=== PATIENT | male | born 1960 | race Two or more races ===

== ENCOUNTER 2018-08-19 04:30 | Inpatient (IN) | payer OTHER ==
[2018-08-19] MEDS ORDERED: morphine 4 MG/ML VIAL IV (05:10)
[2018-08-19] MEDS: SOD CHLORIDE 0.9% 1,000 ML IV ×2 (05:31→08:13)
[2018-08-19] MEDS: HYDROmorphONE 0.5 MG/0.5 ML SYG IV (05:32)
[2018-08-19] MEDS: ONDANSETRON 4 MG INJ IV (05:32)
[2018-08-19] MEDS: FAMOTIDINE 20 MG INJ IV (05:32)
[2018-08-19 05:43] LABS: ADD MAN DIFF? NO
[2018-08-19] MEDS: LIDOCAINE/MYLANTA 40 ML BTL PO (05:55)
[2018-08-19 05:57] LABS: BASOPHIL # 0.1 10^3/ul (0.0-0.1); BASOPHILS % 0.9 % (0.0-2.0); EOSINOPHILS # 0.2 10^3/ul (0.0-0.5); HEMATOCRIT 36.1 % (42.0-52.0); HEMOGLOBIN 12.6 g/dl (14.0-18.0); LYMPHOCYTES # 2.3 10^3/ul (0.8-2.9); LYMPHOCYTES % 40.7 % (15.0-51.0); MEAN CORPUSCULAR HEMOGLOBIN 30.7 pg (29.0-33.0); MEAN CORPUSCULAR HGB CONC 34.9 g/dl (32.0-37.0); MEAN PLATELET VOLUME 9.9 fl (7.4-10.4); MONOCYTE # 0.6 10^3/ul (0.3-0.9); MONOCYTES % 9.9 % (0.0-11.0); NEUTROPHIL # 2.5 10^3/ul (1.6-7.5); NEUTROPHILS % 45.1 % (39.0-77.0); PLATELET COUNT 223 10^3/UL (140-415); RED CELL DISTRIBUTION WIDTH 15.7 % (11.5-14.5)
[2018-08-19 05:57] LABS: WHITE BLOOD COUNT 5.6 10^3/ul (4.8-10.8)
[2018-08-19 06:51] LABS: ALANINE AMINOTRANSFERASE 48 IU/L (13-69); ALBUMIN 3.7 g/dl (3.3-4.9); ALBUMIN/GLOBULIN RATIO 1.02; ALKALINE PHOSPHATASE 121 IU/L (42-121); AMYLASE 163 U/L (11-123); ANION GAP 24 (8-16); ASPARTATE AMINO TRANSFERASE 83 IU/L (15-46); BILIRUBIN,INDIRECT 0.3 mg/dl (0-1.1); BILIRUBIN,TOTAL 0.3 mg/dl (0.2-1.3); BLOOD UREA NITROGEN 8 mg/dl (7-20); CARBON DIOXIDE 21 mmol/L (21-31); CHLORIDE 102 mmol/L (97-110); CREATININE 1.01 mg/dl (0.61-1.24); GLUCOSE 145 mg/dl (70-220); LIPASE 37 U/L (23-300); POTASSIUM 3.9 mmol/L (3.5-5.1); SODIUM 143 mmol/L (135-144); TOTAL PROTEIN 7.3 g/dl (6.1-8.1)
[2018-08-19] MEDS: LORAZEPAM 1 MG TAB PO (07:11)
[2018-08-19] MEDS: KETOROLAC 15 MG INJ IV ×2 (09:04→17:27)
[2018-08-19 10:16] LABS: ADD UMIC NO; UR ASCORBIC ACID NEGATIVE (NEGATIVE); UR BILIRUBIN (Dip) NEGATIVE (NEGATIVE); UR BLOOD (Dip) NEGATIVE (NEGATIVE); UR CLARITY CLEAR (CLEAR); UR COLOR YELLOW (YELLOW); UR GLUCOSE (Dip) NEGATIVE (NEGATIVE); UR KETONES (Dip) TRACE mg/dL (NEGATIVE); UR LEUKOCYTE ESTERASE (Dip) NEGATIVE Leu/ul (NEGATIVE); UR NITRITE (Dip) NEGATIVE (NEGATIVE); UR SPECIFIC GRAVITY (Dip) 1.012 (1.003-1.030); UR TOTAL PROTEIN (Dip) NEGATIVE (NEGATIVE); UR UROBILINOGEN (Dip) NEGATIVE (NEGATIVE)
[2018-08-19] MEDS: LORAZEPAM 2 MG INJ IV (11:49)
[2018-08-19] MEDS: THIAMINE 100 MG TAB PO (15:14)
[2018-08-19] MEDS: MULTIVITAMINS THERAPEUTIC TAB PO (15:14)
[2018-08-19] MEDS: FOLIC ACID 1 MG TAB PO (15:14)
[2018-08-19] MEDS: DEXTROSE 5%-0.45% NACL 1,000 ML IV ×2 (15:15→22:46)
[2018-08-19] MEDS: morphine 4 MG/ML VIAL IV ×2 (15:25→19:59)
[2018-08-19] MEDS: HYDROCODONE/APAP (5/325) TAB PO (17:27)
[2018-08-19] MEDS: CHLORDIAZEPOXIDE 25 MG CAP PO (20:09)
[2018-08-20] MEDS: KETOROLAC 15 MG INJ IV ×3 (00:13→12:09)
[2018-08-20] MEDS: morphine 4 MG/ML VIAL IV ×4 (01:06→14:19)
[2018-08-20] MEDS: HYDROCODONE/APAP (5/325) TAB PO ×2 (02:58→09:03)
[2018-08-20] MEDS: ZOLPIDEM 5 MG TAB PO (02:59)
[2018-08-20] MEDS: PANTOPRAZOLE (EC) 40 MG TAB PO (06:08)
[2018-08-20] MEDS: DEXTROSE 5%-0.45% NACL 1,000 ML IV ×3 (08:42→16:04)
[2018-08-20] MEDS: MULTIVITAMINS THERAPEUTIC TAB PO (09:02)
[2018-08-20] MEDS: THIAMINE 100 MG TAB PO (09:02)
[2018-08-20] MEDS: FOLIC ACID 1 MG TAB PO (09:02)
[2018-08-20] MEDS: CHLORDIAZEPOXIDE 25 MG CAP PO ×4 (09:02→21:00)
[2018-08-20] MEDS: HYDROmorphONE 2 MG/ML SYG IV (16:04)
[2018-08-20] MEDS: CREON (24K-76K-120K) 1 CAP PO (17:23)
[2018-08-20] MEDS ORDERED: HYDROmorphONE 1 MG/ML SYG IV (17:30)
[2018-08-20] MEDS ORDERED: CREON (24K-76K-120K) 1 CAP PO (18:00)
[2018-08-20] MEDS ORDERED: HYDROmorphONE 2 MG/ML SYG IV (19:30)
[2018-08-20 20:33] LABS: ADD MAN DIFF? NO
[2018-08-20 20:36] LABS: WHITE BLOOD COUNT 3.7 10^3/ul (4.8-10.8)
[2018-08-20 20:36] LABS: BASOPHILS % 0.8 % (0.0-2.0); EOSINOPHILS # 0.2 10^3/ul (0.0-0.5); HEMATOCRIT 34.3 % (42.0-52.0); HEMOGLOBIN 11.5 g/dl (14.0-18.0); LYMPHOCYTES % 28.1 % (15.0-51.0); MEAN CORPUSCULAR HEMOGLOBIN 31.1 pg (29.0-33.0); MEAN CORPUSCULAR HGB CONC 33.5 g/dl (32.0-37.0); MEAN CORPUSCULAR VOLUME 92.7 fl (82.0-101.0); MEAN PLATELET VOLUME 10.3 fl (7.4-10.4); MONOCYTE # 0.4 10^3/ul (0.3-0.9); MONOCYTES % 11.4 % (0.0-11.0); NEUTROPHILS % 53.4 % (39.0-77.0); PLATELET COUNT 160 10^3/UL (140-415); RED CELL DISTRIBUTION WIDTH 15.5 % (11.5-14.5)
[2018-08-20] MEDS ORDERED: ZOLPIDEM 5 MG TAB PO (21:00)
[2018-08-20 21:03] LABS: ALANINE AMINOTRANSFERASE 45 IU/L (13-69); ALBUMIN 3.2 g/dl (3.3-4.9); ALKALINE PHOSPHATASE 96 IU/L (42-121); AMYLASE 91 U/L (11-123); ANION GAP 13 (8-16); ASPARTATE AMINO TRANSFERASE 67 IU/L (15-46); BILIRUBIN,INDIRECT 0.5 mg/dl (0-1.1); BILIRUBIN,TOTAL 0.5 mg/dl (0.2-1.3); BLOOD UREA NITROGEN 4 mg/dl (7-20); CALCIUM 8.8 mg/dl (8.4-10.2); CARBON DIOXIDE 26 mmol/L (21-31); CHLORIDE 104 mmol/L (97-110); CREATININE 0.88 mg/dl (0.61-1.24); GLUCOSE 136 mg/dl (70-220); LIPASE 13 U/L (23-300); MAGNESIUM 1.8 mg/dl (1.7-2.5); POTASSIUM 4.3 mmol/L (3.5-5.1); SODIUM 139 mmol/L (135-144); TOTAL PROTEIN 6.4 g/dl (6.1-8.1)
[2018-08-20] MEDS: LORAZEPAM 1 MG TAB PO (22:54)
[2018-08-20] MEDS: HYDROmorphONE 1 MG/ML SYG IV (23:29)
[2018-08-21] MEDS: HYDROmorphONE 1 MG/ML SYG IV ×2 (02:50→06:51)
[2018-08-21] MEDS: DEXTROSE 5%-0.45% NACL 1,000 ML IV ×3 (02:56→23:30)
[2018-08-21] MEDS: PANTOPRAZOLE (EC) 40 MG TAB PO (06:51)
[2018-08-21] MEDS: LORAZEPAM 1 MG TAB PO ×2 (07:25→15:15)
[2018-08-21] MEDS: FOLIC ACID 1 MG TAB PO (08:05)
[2018-08-21] MEDS: MULTIVITAMINS THERAPEUTIC TAB PO (08:05)
[2018-08-21] MEDS: CHLORDIAZEPOXIDE 25 MG CAP PO ×4 (08:05→20:31)
[2018-08-21] MEDS: CREON (24K-76K-120K) 1 CAP PO ×3 (08:05→17:14)
[2018-08-21] MEDS: THIAMINE 100 MG TAB PO (08:05)
[2018-08-21] MEDS: HYDROmorphONE 2 MG/ML SYG IV ×4 (11:04→23:30)
[2018-08-22] MEDS: LORAZEPAM 1 MG TAB PO (01:43)
[2018-08-22] MEDS: HYDROmorphONE 2 MG/ML SYG IV ×3 (03:44→12:17)
[2018-08-22] MEDS: PANTOPRAZOLE (EC) 40 MG TAB PO (05:50)
[2018-08-22] MEDS: DEXTROSE 5%-0.45% NACL 1,000 ML IV (07:30)
[2018-08-22] MEDS: FOLIC ACID 1 MG TAB PO (08:52)
[2018-08-22] MEDS: CREON (24K-76K-120K) 1 CAP PO ×2 (08:52→12:22)
[2018-08-22] MEDS: MULTIVITAMINS THERAPEUTIC TAB PO (08:52)
[2018-08-22] MEDS: THIAMINE 100 MG TAB PO (08:52)
[2018-08-22] MEDS: CHLORDIAZEPOXIDE 25 MG CAP PO ×2 (08:52→12:22)
== END 2018-08-22 14:15 | disposition home or self-care (01) | DRG 897 ==
LOC: E/R 04:30 → 6WM 09:33
DX: F10.239 Alcohol dependence with withdrawal, unspecified (principal); E86.0 Dehydration; Z76.5 Malingerer [conscious simulation]; R00.0 Tachycardia, unspecified; R10.13 Epigastric pain
CPT/HCPCS: 36415; 80053; 80307; 81003; 82150; 83690; 83735; 85025; 93306; 96361; 96374; 96375; 99285-25

== ENCOUNTER 2018-08-27 17:19 | Emergency (ER) | payer OTHER ==
[2018-08-27] MEDS: SOD CHLORIDE 0.9% 500 ML IV (17:55)
[2018-08-27] MEDS: SOD CHLORIDE 0.9% 1,000 ML IV (18:00)
[2018-08-27] MEDS: KETOROLAC 30 MG INJ IV (18:13)
[2018-08-27 18:46] LABS: HEMATOCRIT 37.2 % (42.0-52.0); HEMOGLOBIN 12.7 g/dl (14.0-18.0); MEAN CORPUSCULAR HEMOGLOBIN 30.8 pg (29.0-33.0); MEAN CORPUSCULAR HGB CONC 34.1 g/dl (32.0-37.0); MEAN CORPUSCULAR VOLUME 90.1 fl (82.0-101.0); MEAN PLATELET VOLUME 9.7 fl (7.4-10.4); PLATELET COUNT 250 10^3/UL (140-415); RED BLOOD COUNT 4.13 10^6/ul (4.70-6.10); RED CELL DISTRIBUTION WIDTH 15.5 % (11.5-14.5)
[2018-08-27 18:46] LABS: WHITE BLOOD COUNT 4.5 10^3/ul (4.8-10.8)
[2018-08-27 18:49] LABS: ADD MAN DIFF? YES
[2018-08-27 19:03] LABS: ALANINE AMINOTRANSFERASE 46 IU/L (13-69); ALBUMIN 4.4 g/dl (3.3-4.9); ALBUMIN/GLOBULIN RATIO 1.22; ALKALINE PHOSPHATASE 117 IU/L (42-121); ANION GAP 20 (8-16); ASPARTATE AMINO TRANSFERASE 87 IU/L (15-46); BILIRUBIN,INDIRECT 0.2 mg/dl (0-1.1); BILIRUBIN,TOTAL 0.2 mg/dl (0.2-1.3); BLOOD UREA NITROGEN 5 mg/dl (7-20); CALCIUM 9.1 mg/dl (8.4-10.2); CARBON DIOXIDE 21 mmol/L (21-31); CHLORIDE 107 mmol/L (97-110); GLUCOSE 118 mg/dl (70-220); LIPASE 11 U/L (23-300); POTASSIUM 4.4 mmol/L (3.5-5.1); SODIUM 144 mmol/L (135-144)
[2018-08-27 19:18] LABS: BAND NEUTROPHILS % (M) 2 % (0-4); BASOPHILS % (M) 1 % (0-2); EOSINOPHILS % (M) 5 % (0-7); GIANT THROMBO% (M) 3 % (0-0); LYMPHOCYTES #M 2.4 10^3/ul (0.8-2.9); LYMPHOCYTES % (M) 54 % (15-51); MONOCYTE #M 0.6 10^3/ul (0.3-0.9); MONOCYTES % (M) 14 % (0-11); MYELOCYTES % (M) 1 % (0-0); PLATELET ESTIMATE NORMAL; REACTIVE LYMPHOCYTES% (M) 2 % (0-0); SEG NEUT #M 0.9 10^3/ul (1.6-7.5); SEGMENTED NEUTROPHILS (M) % 20 % (39-77); SMUDGE%M 48 % (0-0)
== END 2018-08-27 20:13 | disposition home or self-care (01) ==
LOC: E/R 17:19
DX: R10.9 Unspecified abdominal pain (principal); F98.9 Unspecified behavioral and emotional disorders with onset usually occurring in childhood and adolescence
CPT/HCPCS: 36415; 80053; 83690; 85025; 96374; 99284-25